=== PATIENT | female | born 1985 | race Two or more races ===

== ENCOUNTER 2019-06-27 19:39 | Emergency (ER) | payer MEDICAID ==
[~2019-06-27] VITALS: Ht 162.6 cm; Wt 99.8 kg
[2019-06-27 21:34] VITALS: BP 138/78
== END 2019-06-27 22:22 | disposition home or self-care (01) ==
LOC: ER 19:48
DX: S62.336A Displaced fracture of neck of fifth metacarpal bone, right hand, initial encounter for closed fracture (principal); W22.01XA Walked into wall, initial encounter; Y93.89 Activity, other specified; Y99.8 Other external cause status; Y92.89 Other specified places as the place of occurrence of the external cause
CPT/HCPCS: 29125; 73130